=== PATIENT | female | born 1950 | race Caucasian/White ===

== ENCOUNTER → 2018-01-16 | Outpatient (CLI) | payer OTHER ==
[~2018-01-16] MED LIST: FEMARA2.5 MG; IBUPROFEN 200200 M1 PO; NORCO 5-325 TA1 EACH PO; ROBAXIN 750 MG750 M1 PO
[2018-01-16 16:58] LABS: ABSOLUTE EOSINOPHILS 0.1 thou/uL (0.0-0.7); ABSOLUTE LYMPHOCYTES 1.6 thou/uL (0.8-5.3); ABSOLUTE MONOCYTES 0.8 thou/uL (0.0-1.2); ABSOLUTE NEUTROPHILS 3.8 thou/uL (1.6-8.1); BASOPHILS 0.4 %; EOSINOPHILS 2.3 %; HEMATOCRIT 37.7 % (37.0-47.0); HEMOGLOBIN 12.6 gm/dL (12.0-15.0); LYMPHOCYTES 25.5 %; MCH 31.3 pg (26.0-34.0); MCHC 33.5 g/dL (28.0-37.0); MCV 93.5 fL (80.0-100.0); MONOCYTES 12.3 %; MPV 7.2 fl. (7.2-11.1); NUCLEATED RBCS 0 /100WBC; PLATELET COUNT* 297 thou/uL (150-400); POLYS 59.5 %; RBC 4.03 mil/uL (4.20-5.00); RDW-CV 13.5 % (10.5-14.5); WBC 6.4 thou/uL (4.0-11.0)
[2018-01-16 17:11] LABS: ALBUMIN 3.6 g/dL (3.4-5.0); CALCIUM 8.6 mg/dL (8.5-10.1); CREATININE 0.8 mg/dL (0.6-1.3); POTASSIUM 3.4 mmol/L (3.5-5.1); TOTAL BILIRUBIN 0.3 mg/dL (<0.1-1.0); TOTAL PROTEIN 7.3 g/dL (6.4-8.2)
== END ==
LOC: M.LAB 16:37
PROVIDERS: Internal Medicine Hematology & Oncology
DX: C50.212 Malignant neoplasm of upper-inner quadrant of left female breast (principal); Z17.0 Estrogen receptor positive status [ER+]

== ENCOUNTER → 2018-12-26 | Outpatient (CLI) | payer OTHER | LOC: M.LAB 05:04 | DX: E87.6 Hypokalemia (principal) ==

== ENCOUNTER → 2018-12-31 | Outpatient (CLI) | payer OTHER ==
[2018-12-31 11:27] LABS: ABSOLUTE EOSINOPHILS 0.3 thou/uL (0.0-0.7); ABSOLUTE LYMPHOCYTES 1.5 thou/uL (0.8-5.3); ABSOLUTE MONOCYTES 0.6 thou/uL (0.0-1.2); ABSOLUTE NEUTROPHILS 4.1 thou/uL (1.6-8.1); BASOPHILS 0.6 %; EOSINOPHILS 4.7 %; HEMATOCRIT 39.6 % (37.0-47.0); HEMOGLOBIN 13.6 gm/dL (12.0-15.0); LYMPHOCYTES 23.5 %; MCH 31.6 pg (26.0-34.0); MCHC 34.4 g/dL (28.0-37.0); MCV 91.9 fL (80.0-100.0); MONOCYTES 9.2 %; MPV 7.6 fl. (7.2-11.1); NUCLEATED RBCS 0 /100WBC; PLATELET COUNT* 316 thou/uL (150-400); RBC 4.31 mil/uL (4.20-5.00); RDW-CV 13.9 % (10.5-14.5); WBC 6.6 thou/uL (4.0-11.0)
[2018-12-31 11:49] LABS: ALBUMIN 3.8 g/dL (3.4-5.0); CALCIUM 9.3 mg/dL (8.5-10.1); CREATININE 0.8 mg/dL (0.6-1.3); POTASSIUM 3.5 mmol/L (3.5-5.1); TOTAL BILIRUBIN 0.5 mg/dL (<0.1-1.0); TOTAL PROTEIN 7.5 g/dL (6.4-8.2)
== END ==
LOC: M.LAB 10:58
PROVIDERS: Internal Medicine Hematology & Oncology
DX: C50.212 Malignant neoplasm of upper-inner quadrant of left female breast (principal); Z17.0 Estrogen receptor positive status [ER+]

== ENCOUNTER → 2019-01-30 | Outpatient (CLI) | payer OTHER | LOC: M.NUC 09:57 | DX: C50.212 Malignant neoplasm of upper-inner quadrant of left female breast (principal); Z17.0 Estrogen receptor positive status [ER+] ==

== ENCOUNTER → 2021-08-16 | Outpatient (CLI) | payer OTHER | LOC: M.LAB 08:14 | PROVIDERS: ATTEND Internal Medicine Gastroenterology | DX: Z01.812 Encounter for preprocedural laboratory examination (principal); Z20.822 Contact with and (suspected) exposure to COVID-19 ==

== ENCOUNTER → 2021-08-18 | Outpatient (CLI) | payer OTHER ==
[2021-08-18 09:42] LABS: ABSOLUTE EOSINOPHILS 0.3 thou/uL (0.0-0.7); ABSOLUTE LYMPHOCYTES 1.2 thou/uL (0.8-5.3); ABSOLUTE MONOCYTES 0.6 thou/uL (0.0-1.2); ABSOLUTE NEUTROPHILS 3.6 thou/uL (1.6-8.1); BASOPHILS 0.5 %; EOSINOPHILS 4.6 %; HEMATOCRIT 35.9 % (37.0-47.0); HEMOGLOBIN 12.1 gm/dL (12.0-15.0); LYMPHOCYTES 21.1 %; MCH 31.3 pg (26.0-34.0); MCHC 33.8 g/dL (28.0-37.0); MCV 92.6 fL (80.0-100.0); MONOCYTES 10.3 %; NUCLEATED RBCS 0 /100WBC; PLATELET COUNT* 302 thou/uL (150-400); POLYS 63.5 %; RBC 3.87 mil/uL (4.20-5.00); RDW-CV 13.3 % (10.5-14.5); WBC 5.6 thou/uL (4.0-11.0)
[2021-08-18 09:53] LABS: ALBUMIN 3.5 g/dL (3.4-5.0); CALCIUM 8.3 mg/dL (8.5-10.1); CREATININE 0.7 mg/dL (0.6-1.3); POTASSIUM 3.8 mmol/L (3.5-5.1); TOTAL BILIRUBIN 0.6 mg/dL (<0.1-1.0)
[2021-08-18 10:52] LABS: ESR (SEDRATE) 20 mm/hr (0-30)
== END ==
LOC: M.LAB 09:14
PROVIDERS: ATTEND Internal Medicine Gastroenterology
DX: R10.9 Unspecified abdominal pain (principal); R19.7 Diarrhea, unspecified